=== PATIENT | male | born 1955 | race Caucasian/White ===

== ENCOUNTER 2020-09-14 06:42 | Outpatient (NON) | payer OTHER, SELFPAY ==
[2020-09-16 21:25] LABS: SARS-CoV-2 RNA PCR Positive
== END 2020-09-14 06:43 ==
LOC: ANHCOVIDDT 07:09
PROVIDERS: PCP Family Medicine; Visit Provider Family Medicine
DX: U07.1 COVID-19 (principal)
CPT/HCPCS: 87635; C9803; U0003

== ENCOUNTER 2022-05-30 13:07 | Outpatient (CLI) | payer MEDICARE, SELFPAY ==
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
== END 2022-05-30 13:08 | disposition home or self-care (01) ==
PROVIDERS: PCP Family Medicine; Visit Provider Family Medicine
DX: R51.9 Headache, unspecified (principal)
CPT/HCPCS: 70150

== ENCOUNTER 2022-06-19 14:05 | Outpatient (CLI) | payer MEDICARE, SELFPAY ==
--- NOTE | ~2022-06-19 | US_ITS ---
EXAMINATION: US venous doppler LE RT DATE: 06/19/2022 15:03 INDICATION: Right lower limb pain TECHNIQUE: Grayscale ultrasound images without and with compression and Doppler ultrasound images of the right lower extremity veins were obtained. COMPARISON: None. FINDINGS: The visualized portions of right common femoral vein, profunda (deep) femoral vein, femoral vein, pop liteal vein, peroneal trunk, posterior tibial veins, peroneal veins, gastrocnemius vein and greater s aphenous vein outflow are patent. IMPRESSION: 1. No deep venous thrombosis in the right lower limb. Reviewed, dictated and finalized at location A.
[2022-06-19 15:17] LABS: Hematocrit 43.1 % (42.0-52.0); Hemoglobin 14.2 g/dL (14.0-18.0); Mean Corpuscular HGB Conc 32.9 g/dl (32-36); Mean Corpuscular Hemoglobin 31.5 pg (26-34); Mean Corpuscular Volume 95.6 fl (80-100); Mean Platelet Volume 8.8 fl (7.4-10.4); Platelet Count Result 215 k/mm3 (150-375); Red Blood Count 4.51 M/mm3 (4.6-6.20); Red Cell Distribution Width 12.3 % (11.5-14.5); White Blood Count 5.3 K/mm3 (4.5-10.0)
[2022-06-19 15:30] LABS: Hemoglobin A1C 4.9 % (<5.7)
[2022-06-19 15:38] LABS: LDL Cholesterol Direct 71 mg/dL
[2022-06-19 15:41] LABS: Alanine Aminotransferase 25 U/L (6-50); Albumin Level 4.4 g/dL (3.5-5.1); Alkaline Phosphatase 98 U/L (38-126); Anion Gap 10 mmol/L (8-16); Aspartate Amino Transferase 79 U/L (17-59); Bilirubin,Total 0.8 mg/dL (0.2-1.3); Blood Urea Nitrogen 17 mg/dL (9-20); Calcium 9.3 mg/dL (8.4-10.2); Carbon Dioxide 26 mmol/L (22-30); Chloride 102 mmol/L (98-107); Cholesterol 215 mg/dL (0-200); Estimated Glomerular Filt Rate > 60; Glucose 105 mg/dL (65-110); Potassium 4.2 mmol/L (3.4-5.0); Sodium 138 mmol/L (137-145); Triglycerides 41 mg/dL (<150)
[2022-06-19 15:57] LABS: Prostate Specific Antigen 0.8 ng/mL (< OR = 4.0)
[2022-06-19 18:50] LABS: HDL Direct 128 mg/dL
== END 2022-06-19 14:06 | disposition home or self-care (01) ==
PROVIDERS: PCP Family Medicine; Visit Provider Family Medicine
DX: Z12.5 Encounter for screening for malignant neoplasm of prostate (principal); I10 Essential (primary) hypertension; E78.00 Pure hypercholesterolemia, unspecified; R74.8 Abnormal levels of other serum enzymes; R73.03 Prediabetes; M79.661 Pain in right lower leg
CPT/HCPCS: 36415; 80053; 80061; 83036; 84153; 84443; 85027; 93971; G0103

== ENCOUNTER 2022-08-17 16:15 | Emergency (ER) | payer MEDICARE, SELFPAY ==
[2022-08-17 16:40] VITALS: BP 136/74; PULSE 80; RESP 14; TEMP 36.6; O2SAT 98
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
== END 2022-08-17 17:15 | disposition home or self-care (01) ==
PROVIDERS: Emergency Provider Nurse Practitioner Family; PCP Family Medicine
DX: T24.202A Burn of second degree of unspecified site of left lower limb, except ankle and foot, initial encounter (principal); T31.0 Burns involving less than 10% of body surface
CPT/HCPCS: 99283; A9270

== ENCOUNTER → 2023-07-17 08:18 | Outpatient (CLI) | payer MEDICARE, SELFPAY ==
--- NOTE | ~2023-07-17 | US_ITS ---
EXAMINATION: US right upper quadrant DATE: 07/17/2023 08:32 INDICATION: Abnormal levels of other serum enzymes. TECHNIQUE: Multiple grayscale and Doppler ultrasound images of the abdomen were obtained. COMPARISON: None FINDINGS: The visualized portions of the head and body of the pancreas are normal. The liver is moises l without focal lesion. No liver surface nodularity. There is normal flow in main portal vein. The ga llbladder is normal in size. No gallstones or gallbladder wall thickening. There is no sonographic Mu rphy sign. The common duct is normal and measures 6 mm. IMPRESSION: 1. Normal right upper quadrant ultrasound. Reviewed, dictated and finalized at location E.
== END ==
PROVIDERS: PCP Family Medicine; Visit Provider Family Medicine
DX: R74.8 Abnormal levels of other serum enzymes (principal)
CPT/HCPCS: 76705

== ENCOUNTER 2024-03-09 12:42 | Outpatient (CLI) | payer MEDICARE, SELFPAY ==
--- NOTE | ~2024-03-09 | MR_ITS ---
EXAMINATION: MR foot LT wo con DATE: 03/09/2024 13:16 INDICATION: Left foot pain TECHNIQUE: Magnetic resonance imaging (MRI) of the left fore/mid foot was performed without intraveno us contrast. Sequences included sagittal T1-weighted FSE, sagittal fluid sensitive FSE STIR, coronal PD-weighted FS FSE, coronal T1-weighted FSE, axial PD-weighted FS FSE, and axial PD-weighted FSE. COMPARISON: None FINDINGS: 20 degrees hallux valgus. Alignment is otherwise normal. Likely old healed fracture deformities at th e necks of the second-fourth metacarpals. No acute fracture. Polyarticular osteoarthritis, mild to mo derate severity at the first metatarsophalangeal joint and mild at many of the remaining metacarpopha langeal and interphalangeal joints. There is edema-like signal change at the medial aspect of the hea d of the first proximal phalanx. There appears be associated chronic erosion versus cystic change wit h thin sclerotic margins at the medial head of the first proximal phalanx on prior radiographs could represent either osteoarthritis related with subarticular cystic change or chronic erosion such as in the setting of gout. Mild thickening and increased signal of the proximal aspect of the medial colla teral ligament complex at the first metatarsophalangeal joint with mild edema-like signal change unde rlying the footplate at the medial head of the first metatarsal. No evident associated erosion. The r emaining collateral ligament complex at the metatarsophalangeal and interphalangeal joints are normal . Lisfranc ligament complex is normal. The flexor and extensor tendons are normal. Visualized intrins ic musculature of the foot is unremarkable. No joint effusions or other abnormal fluid collections. IMPRESSION: 1. 20 degrees hallux valgus with mild to moderate osteoarthritis at the first metatarsophalangeal kristi nt. 2. Mild thickening and increased signal of the medial collateral ligament complex at the first metata rsophalangeal joint with mild edema underlying the first metatarsal insertion of which could be relat ed with me chronic sprain, degeneration or potentially an inflammatory enthesopathy although no corre sponding erosion is identified. 3. Increased fluid signal at the medial head of the first proximal phalanx with a couple lytic lesion s on the prior radiograph which could represent either osteoarthritis related subchondral cystic parker ge or chronic erosion such as in the setting of gout. Reviewed, dictated and finalized at location A. IMPRESSION: 1. 20 degrees hallux valgus with mild to moderate osteoarthritis at the first m etatarsophalangeal joint. 2. Mild thickening and increased signal of the medial collateral ligament compl ex at the first metatarsophalangeal joint with mild edema underlying the first metatarsal insertion of which could be related with me chronic sprain, degenera tion or potentially an inflammatory enthesopathy although no corresponding eros ion is identified. 3. Increased fluid signal at the medial head of the first proximal phalanx with a couple lytic lesions on the prior radiograph which could represent either os teoarthritis related subchondral cystic change or chronic erosion such as in th e setting of gout.
== END 2024-03-09 12:43 ==
LOC: MICIMG 12:43
PROVIDERS: PCP Orthopaedic Surgery; Visit Provider Orthopaedic Surgery
DX: M20.12 Hallux valgus (acquired), left foot (principal); M19.072 Primary osteoarthritis, left ankle and foot; R60.0 Localized edema
CPT/HCPCS: 73718

== ENCOUNTER 2025-02-02 08:50 | Outpatient (CLI) | payer MEDICARE, SELFPAY ==
--- NOTE | ~2025-02-02 | US_ITS ---
Limited Abdominal Sonogram: Real-time sonographic imaging of the right upper quadrant was performed. Clinical History: Abnormal serum enzyme levels Findings: The liver appears normal with no evidence of mass lesion or bile duct dilatation. Main por gregg vein demonstrates normal direction of flow. The gallbladder is well distended, and appears normal with no evidence of gallstone or wall thickening. The common bile duct measures 5 mm. The visualize d pancreas, aorta, and IVC are unremarkable. Impression: No significant abnormality seen. Reviewed, dictated and finalized at location M. Impression: No significant abnormality seen.
--- OUTSIDE RECORDS SUMMARY | 2025-02-02 09:17 | XMS_ITS | Clinical Summary ---
Author Organization [facility] Address [address] [place] [address] Care Team Providers Care Water Resource Consultant Name Role Phone Farhat Mckee MD Primary Care Provider + [phone] Allergies Active Allergy Reactions Criticality Noted Date Comments Benztropine Other (See comments) High 11/26/2018 Memory loss Medications buPROPion XL (WELLBUTRIN XL) 150 mg 24 hr tablet Take 150 mg by mouth daily. Active DULoxetine DR (CYMBALTA) 60 mg capsule Take 120 mg by mouth daily. Active lamoTRIgine (LaMICtal) 200 mg tablet Take 200 mg by mouth daily. Active traZODone (DESYREL) 50 mg tablet Take 50 mg by mouth daily. Active tadalafil (CIALIS) 5 mg tablet TAKE ONE TABLET BY MOUTH ONE HOUR PRIOR TO SEXUAL INTERCOURSE 0 9 Active cyanocobalamin (Vitamin B-12) 1,000 mcg sublingual tablet Take 1,000 mcg by mouth daily Active ibuprofen (ADVIL,MOTRIN) 600 mg tablet TK 1 T PO TID PRF PAIN 0 9 Active acetaminophen (TYLENOL) 500 mg tablet Take 1,000 mg by mouth every 6 (six) hours as needed 9 Active morphine (MSIR) 15 mg tablet TK 1 T PO Q 6 H PRF PAIN 0 9 Active Active Problems Problem Noted Date Diagnosed Date Osteoarthritis of carpometacarpal (CMC) joint of left thumb 03/16/2020 Essential tremor 12/01/2018 Assessment & Plan (12/01/2018 5:01 PM INDEPENDENT LIVING ADVISOR): He had a predominantly action and postural tremor affecting both arms. This tremor was severe enough to impair daily function. He had little to no parkinsonism and no resting tremor. The tremor had been present for almost 40 years, but worse in the past 1 - 4 years. As such the underlying tremor was most likely an essential tremor and this has been made worse by the medications he has taken for his bipolar affective disorder. He needs these medications which makes treating the tremor more difficult. Wellbutrin, duloxetine and lamotrigine can all cause a drug induced tremor. The options for treatment are those I would use for ET but I would prefer to reduce the doses of his psychiatric meds if possible. There are metabolic and structural reasons for tremor that should be evaluated. We will plan for labs and an MRI of his brain to evaluate this. In addition he had a memory problem. This could be due to high doses of psychiatric meds as well. This could be due to a nutritional deficiency which should be evaluated. 1. MRI brain/brainstem w/ and w/o contrast with T2* imaging 2. Labs per orders 3. F/u with psychiatry and call us back Tremors of nervous system 12/01/2018 Memory deficit 12/01/2018 Surgical History Surgery Date Site/Laterality Comments CYST REMOVAL 10/21/2016 - 10/20/2017 OTHER SURGICAL HISTORY 10/21/2016 - 10/20/2017 Thorn removed from foot FOOT SURGERY Medical History Medical History Date Comments Bipolar affective (HCC) 1975 Tremor of both hands Memory loss 2018 Hypertension Essential tremor Bipolar affective disorder (HCC) Family History Medical History Relation Name Comments No Known Problems Brother Alzheimer's disease Father Dementia Father Prostate cancer Father Tremor Father Dementia Mother Hyperlipidemia Mother Hypertension Mother Other Mother No Known Problems Sister Tremor Son Relation Name Status Comments Brother Alive Daughter Alive Father Alive Mother Alive Sister Alive Son Alive Social History Tobacco Use Types Packs/Day Years Used Date Smoking Tobacco: Never Smokeless Tobacco: Never Alcohol Use Standard Drinks/Week Comments Yes 9 (1 standard drink = 0.6 oz pure alcohol) he has had heavy drinking in the past and recently increased his drinking volume Sex and Gender Information Value Date Recorded Sex Assigned at Not on file Legal Sex Male 12:23 PM INDEPENDENT LIVING ADVISOR Gender Identity Male 04/28/2018 10:06 AM CDT Sexual Orientation Not on file 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 on file Not on file Obstetrics History Last Filed Vital Signs Vital Sign Reading Time Taken Comments Blood Pressure 122/75 02/24/2019 7:46 AM CDT Pulse 72 02/24/2019 7:46 AM CDT Temperature - - Respiratory Rate - - Oxygen Saturation - - Inhaled Oxygen Concentration - - Weight 77.1 kg (170 lb) 10/05/2019 12:09 PM INDEPENDENT LIVING ADVISOR Height 180.3 cm (5' 11 ) 10/05/2019 12:09 PM INDEPENDENT LIVING ADVISOR Body Mass Index 23.71 10/05/2019 12:09 PM INDEPENDENT LIVING ADVISOR Plan of Treatment Not on file Insurance Care Teams Water Resource Consultant Relationship Specialty Start Date End Date Farhat Mckee MD [address] [place] [address] PCP - General Family Medicine 04/28/18
--- OUTSIDE RECORDS SUMMARY | 2025-02-02 09:17 | XMS_ITS | Referral Summary ---
Author Organization [facility] Address [address] [place] [address] Care Team Providers Care Distribution Center Assistant Name Role Phone Frahat Mckee MD Primary Care Provider + [phone] Allergies Active Allergy Reactions Criticality Noted Date [...] 12/01/2018 Assessment & Plan (12/01/2018 5:01 PM LICENSED PESTICIDE APPLICATOR): He had a predominantly action and postural [...] of nervous system 12/01/2018 Memory deficit 12/01/2018 Social History Tobacco Use Types Packs/Day Years Used Date Smoking Tobacco: Never Smokeless Tobacco: Never Alcohol Use Standard Drinks/Week Comments Yes 9 (1 standard drink = 0.6 oz pure alcohol) he has had heavy drinking in the past and recently increased his drinking volume Sex and Gender Information Value Date Recorded Sex Assigned at Not on file Legal Sex Male 12:23 PM LICENSED PESTICIDE APPLICATOR Gender Identity Male 04/28/2018 10:06 AM CDT Sexual Orientation Not on file 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 on file Not on file Last Filed Vital Signs Vital Sign Reading Time Taken Comments Blood Pressure 122/75 02/24/2019 7:46 AM CDT Pulse 72 02/24/2019 7:46 AM CDT Temperature - - Respiratory Rate - - Oxygen Saturation - - Inhaled Oxygen Concentration - - Weight 77.1 kg (170 lb) 10/05/2019 12:09 PM LICENSED PESTICIDE APPLICATOR Height 180.3 cm (5' 11 ) 10/05/2019 12:09 PM LICENSED PESTICIDE APPLICATOR Body Mass Index 23.71 10/05/2019 12:09 PM LICENSED PESTICIDE APPLICATOR Plan of Treatment Not on file Insurance [facility] Care Teams Distribution Center Assistant Relationship Specialty Start Date End Date Farhat Mckee MD [address] [place] [address] PCP - General Family Medicine 04/28/18
== END 2025-02-02 08:51 | disposition home or self-care (01) ==
LOC: ANHIMG 08:53
PROVIDERS: PCP Family Medicine; Visit Provider Family Medicine
DX: R74.8 Abnormal levels of other serum enzymes (principal); F10.10 Alcohol abuse, uncomplicated
CPT/HCPCS: 76705